=== PATIENT | male | born 2000 | race Caucasian/White ===

== ENCOUNTER 2019-12-19 13:33 | Emergency (ER) | payer OTHER ==
[~2019-12-19] VITALS: Ht 180.3 cm; Wt 105.8 kg
[2019-12-19] MEDS ORDERED: KETOROLAC 30 MG/1 ML IM ONE (14:00)
[2019-12-19] MEDS ORDERED: METHOCARBAMOL 750 MG TABLET PO ONE (14:00)
[2019-12-19] MEDS ORDERED: KETOROLAC 30 MG/1 ML ONE (14:04)
[2019-12-19] MEDS ORDERED: METHOCARBAMOL 750 MG TABLET ONE (14:04)
[2019-12-19 15:19] VITALS: BP 132/68
== END 2019-12-19 15:21 | disposition home or self-care (01) ==
LOC: ED 15:20
DX: S29.012A Strain of muscle and tendon of back wall of thorax, initial encounter (principal); X50.0XXA Overexertion from strenuous movement or load, initial encounter; Y93.89 Activity, other specified; Y92.89 Other specified places as the place of occurrence of the external cause; Y99.8 Other external cause status
CPT/HCPCS: 72072; 96372; 99283; J1885

== ENCOUNTER 2020-04-16 02:50 | Emergency (ER) | payer OTHER ==
[~2020-04-16] VITALS: Ht 180.3 cm; Wt 108.6 kg
[2020-04-16 02:53] VITALS: BP 147/101
--- NOTE | 2020-04-16 03:07 | NUR ---
PT REPORTS HAD ALLERGIC REACTION TO UNKNOWN SOURCE, HAD WHEEZING, STOMACH ACHE, AND HIVES. USED ALBUTEROL INHALER AND TOOK BENADRYL. PLACED VITAL SIGNS MONITORS.
[2020-04-16] MEDS ORDERED: ALBU18HF INH (03:10)
== END 2020-04-16 03:32 | disposition home or self-care (01) ==
LOC: ED 03:29
DX: L50.0 Allergic urticaria (principal); R06.02 Shortness of breath
CPT/HCPCS: 99283